=== PATIENT | female | born 1955 | race Caucasian/White ===

== ENCOUNTER → 2020-07-04 | Outpatient (CLI) | payer OTHER ==
[~2020-07-04] MED LIST: COVID-19 VACC, MRNA(MODERNA)/PF 100 MCG/0.5 ML VIAL IM ONE; GLIPIZIDE5 MG PO; JANUVIA100 MG PO; MULTIVITAMIN1 EAC1; NEURONTIN; NEURONTIN600 MG PO; PROZAC; PROZAC40 MG PO; STELARA90 MG/1 ML; Z.0.ASPIRIN325 MG; Z.0.ATENOLOL25 MG; Z.0.DIOVAN320 MG; Z.0.SEROQUEL300 MG; Z.0.WELCHOL625 MG
== END ==
LOC: VACCPMC 10:00
DX: Z23 Encounter for immunization (principal); Z20.822 Contact with and (suspected) exposure to COVID-19

== ENCOUNTER → 2020-08-04 | Outpatient (CLI) | payer OTHER | END | DRG 951 | LOC: VACCPMC 10:36 | DX: Z23 Encounter for immunization (principal); Z20.822 Contact with and (suspected) exposure to COVID-19 | CPT/HCPCS: 0012A; 91301 ==